=== PATIENT | male | born 1990 | race Caucasian/White ===

== ENCOUNTER 2019-03-22 16:18 | Emergency (ER) | payer OTHER ==
[~2019-03-22] VITALS: Ht 172.7 cm; Wt 90.0 kg
[2019-03-22 16:19] VITALS: BP 136/67
[2019-03-22] MEDS ORDERED: ANUS2.5C2 TOP (17:56)
== END 2019-03-22 18:22 | disposition home or self-care (01) ==
LOC: M ED 16:18
DX: K64.5 Perianal venous thrombosis (principal); Z88.6 Allergy status to analgesic agent

== ENCOUNTER → 2021-03-30 | Outpatient (REF) | payer OTHER ==
[~2021-03-30] MED LIST: ANUS2.5C2 TOP
[2021-03-30 18:13] LABS: MALB URINE SIEMENS 5.5 MG/L
== END ==
LOC: M LAB REF 17:25
PROVIDERS: ATTEND Nurse Practitioner Family
DX: E10.65 Type 1 diabetes mellitus with hyperglycemia (principal)